=== PATIENT | female | born 1940 | race Caucasian/White ===

== ENCOUNTER 2016-08-03 10:12 | Day surgery (SDC) | payer MEDICARE ==
[~2016-08-03] VITALS: Ht 149.9 cm; Wt 71.8 kg
[2016-08-03] VITALS (11 sets, daily range): BP systolic 136–165; BP diastolic 60–85; PULSE 80–95; RESP 13–17; O2SAT 96–99
[~2016-08-03 10:12] MED LIST: CHOL10008 PO; CHON250C PO; CeFAZolin Inj 2 GM in IV Premix 1 EACH IV ONE; FLAX100038 PO; LATA2.5D5 OP; LEVO75TA4 PO; LORA10CA PO; Lactated Ringer's 1,000 ML IV SCH; MULT-1018 PO; PANT40TA3 PO; RANI150T11 PO; SIMV40TA5 PO; SUCR1TAB PO
[2016-08-03] MEDS ORDERED: Neostigmine 1 mg/mL 10 mL Inj ONE ×2 (10:13)
[2016-08-03] MEDS ORDERED: fentaNYL-PF 50 mCg/mL 2 mL Inj ONE (10:13)
[2016-08-03] MEDS ORDERED: Succinylcholine Chloride 20 mg/mL 5 mL Inj ONE ×2 (10:13)
[2016-08-03] MEDS ORDERED: MetoCLOpramide 5 mg/mL 2 mL Inj ONE ×2 (10:13)
[2016-08-03] MEDS ORDERED: Remifentanil 1 mg/3 mL Inj ONE ×2 (10:13)
[2016-08-03] MEDS ORDERED: HYDROmorphone 2 mg/mL Inj ONE (10:13)
[2016-08-03] MEDS ORDERED: Rocuronium 10 mg/mL 5 mL Inj ONE ×2 (10:13)
[2016-08-03] MEDS ORDERED: Dexamethasone 4 mg/mL Inj ONE ×2 (10:13)
[2016-08-03] MEDS ORDERED: Phenylephrine/NS 100 mCg/mL 10 mL Syringe IVPUSH ONE ×3 (10:13)
[2016-08-03] MEDS ORDERED: Ondansetron 2 mg/mL 2 mL Inj ONE ×2 (10:13)
[2016-08-03] MEDS ORDERED: Glycopyrrolate 0.2 MG/ML 1mL Inj ONE (10:13)
[2016-08-03] MEDS ORDERED: Glycopyrrolate 0.2 mg/mL 5 mL Inj ONE (10:13)
[2016-08-03] MEDS ORDERED: Phenylephrine 10,000 mCg/mL Inj ONE (10:13)
[2016-08-03] MEDS ORDERED: Propofol 10,000 mCg/mL 20 mL Inj ONE ×2 (10:13)
[2016-08-03] MEDS ORDERED: EPHEDrine/NS 5 mg/mL 5 mL Syringe ONE ×2 (10:13)
[2016-08-03] MEDS ORDERED: Lactated Ringer's 1,000 ML IV ONE ×3 (11:29→17:57)
--- NOTE | 2016-08-03 12:08 | PCM.HPANE ---
Patient Data Date of Service: Aug 03, 2016 Surgeon Admitting Provider: Attending Provider:Nery Villafuerte MD Primary Care Physician:Javan Pal DO Other Provider: Reason for Visit Paraesophageal Hernia Ht/WT & BMI Height (Feet): 4 Height (Inches): 10.00 Weight (Kilograms): 68.170 Body Mass Index 31.00 Allergies Coded Allergies: fentanyl (Verified Allergy, Intermediate, nausea and vomiting, 03/03/16) morphine (Verified Allergy, Intermediate, nausea and vomiting, 03/03/16) adhesive tape (Verified Allergy, Unknown, blisters, 03/03/16) Past Anesthesia History Anesthesia History: Denies:: Anesthesia Reactions, Fam Anesthesia Reaction, Malignant Hyperthermia Diabetes History Hx Diabetes?: No MRSA MRSA: No Medications Hypertension Medication: No Home Meds Incl Beta Monserrat: No Reported Medications Ranitidine (Zantac)150 Mg [id number] Mg PO DAILY 08/01/16 Latanoprost (Xalatan)2.5 Ml Drops2.5 Ml OP DAILY 08/01/16 Cholecalciferol (Vitamin D3) (Vitamin D3)1,000 Unit Tab.chew1,000 Unit PO DAILY 08/01/16 Sucralfate 1 Gm Tablet1 Gm PO TID 30 Days Ref 0 08/01/16 Simvastatin 40 Mg Ohvppn91 Mg PO HS 30 Days Ref 0 08/01/[address] 40 Mg Tablet.dr40 Mg PO DAILY Ref 0 08/01/16 Multivitamin (Multi Vitamin Daily)1 Each Tablet1 Each PO DAILY 30 Days Ref 0 08/01/16 Loratadine (Claritin)10 Mg Vkqlnuq80 Mg PO DAILY Ref 0 08/01/16 Levothyroxine 75 Mcg Plzyqn89 Mcg PO DAILY Ref 0 08/01/16 Flaxseed Oil ([place]-3 Flaxseed Oil)1,000 Mg Capsule1,000 Mg PO DAILY 08/01/16 Chondroitin Sulfate A (Chondroitin Sulfate)250 Mg Cgtasry185 Mg PO DAILY 08/01/16 Discontinued Reported Medications Loratadine (Claritin)10 Mg Owjrffl27 Mg PO DAILY Ref 0 03/03/16 Flaxseed Oil ([place]-3 Flaxseed Oil)1,000 Mg Capsule1,000 Mg PO DAILY 03/03/16 Cholecalciferol (Vitamin D3) (Vitamin D)1,000 Unit Capsule1,000 Unit PO DAILY # 1 BOTTLE Ref 0 03/03/16 Multivitamin (Once Daily)1 Each Tablet1 Each PO DAILY 03/03/16 Gluc/[place]-MSM#2/C/D3/Brad/Born (Ljgipmsavt-Ttdqotqljji-WFX Tab)1 Each Tablet1 Each PO BID 03/03/16 Beclomethasone Dipropionate (Qvar)8.7 Gm Aer.w.adap2 Puff INH BID PRN For Wheezing #9 03/03/16 Latanoprost 2.5 Ml Drops1 Drop AFFECT_EYE HS #3 03/03/16 Albuterol HFA (Proair HFA)8.5 Gm Hfa.aer.ad2 Puffs INHALATION Q4H PRN For Wheezing #1 INHALER 03/03/16 Simvastatin 20 Mg Vnplsc51 Mg PO DAILY #90 03/03/16 Levothyroxine 75 Mcg Svcknv48 Mcg PO DAILY #30 03/03/16 Discontinued Scripts Omeprazole 40 Mg Capsule.dr40 Mg PO BID #60 CAPSULE Ref 3 Prov:Jose E Sams DO 03/04/16 Omeprazole 40 Mg Capsule.dr40 Mg PO BID #30 CAPSULE Ref 4 Prov:Jose E Sams DO 03/04/16 Sucralfate (Carafate)1 Gm Tablet1,000 Mg PO QIDWA #120 TABLET Ref 4 Prov:Jose E Sams DO 03/04/[address] 40 Mg Tablet.dr40 Mg PO BIDAC #60 TABLET Ref 2 Prov:Jose E Sams DO 03/04/16 Ranitidine 150 Mg Aqmtlwx102 Mg PO Q2DAY PRN For Dyspepsia or Heartburn #30 CAPSULE Ref 4 Prov:Jose E Sams DO 03/04/16 History History of ENT Problems?: Yes HEENT History: Positive for:: Cataracts (bilaterally) Glaucoma Sinus Problem (with seasonal allergies) 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) Denies:: Hearing Problem Hx of Heart Problems?: No Cardiovascular History: Denies:: AICD Abdominal Aortic Aneurism Atrial Fibrillation Chest Pain Congestive Heart Failure Coronary Artery Disease Edema Heart Murmur Hypertension Irregular Heartbeat Pacemaker Peripheral Vascular Other History/Comments METS > 4 Hx of Respiratory Problem?: Yes Respiratory History: Positive for:: Asthma (with upper resp infections) Dyspnea Denies:: COPD Oxygen Administration Pneumonia Tuberculosis Use of C-PAP Machine Hx Neurologic Problems?: No Neurological History: Denies:: CVA Dementia Dizziness Headaches Multiple Sclerosis Parkinson's Disease Seizures TIA Hx of GI Problems?: Yes Gastrointestinal History: Positive for:: Gastrointestinal Bleeding (stomach lesions caused gib) Hiatal Hernia (paraesophageal hernia current admission problem) Rectal Bleeding Denies:: Diverticulitis (diverticulosis) Gall Bladder Disease Other History/Comment hct 39% in 04/26/16 Hx of Problems?: No Genitourinary History: Denies:: Kidney Stones Urinary Tract Infection Female Hx: Positive for:: Problems with Breasts? (hx of breast ca- lumpectomy ax node- left side ) Denies:: Currently Skin History: Denies:: History Skin Disorders? Pressure Ulcers Hx Musculoskeletal Problems?: No Musculoskeletal History: Denies:: Back Injury Degenerative Joint Fibromyalgia Musculoskeletal Trauma Osteoarthritis Rheumatoid Arthritis Hx of Psycho/Social Problems?: No Psycho Social History: Denies:: Anxiety Hx Depression Hx Surgeries?: Yes (L axillary node dissection, L breast lumpectomy, c sect, branchial cleft cy) Hx Any Other Health Problems?: Yes Other History: Positive for:: Cancer (L breast ca post chemo & lumpectomy) Thyroid Disease (on levothyroxine) History Blood Transfusions: Positive for:: Accept Blood Products? Blood Transfusions Denies:: Blood Transfuse Reaction Hx Diabetes: No Hx Alcohol Use: Yes (occasional)Hx Substance Use: No Smoking Status: Former Smoker Stop/Bang S-Snoring: Do You Snore Loudly: No T-Tired: feel tired, fatigued: No O-Obsered: Observed not breath: No P-Blood Pressure: treated: No B- Body Mass Index > 35 kg/m2: No A- Age over 50: Yes N- Neck Large Circumference: No G- Gender Male: Yes MARCO ANTONIO Total Score: 2 Risk Assessment Category Category 1A: Patient has history of documented sleep apnea, and HAS NOT received any narcotic, sedative or anesthesia administration during this stay. Category 1B: Patient has history of documented sleep apnea, and HAS received any narcotic , sedative or anesthesia administration during this stay Category 2: Patient has SUSPECTED Obstructive Sleep Apnea, and HAS received any narcotic , sedative or anesthesia administration during this stay. Category 3: Patient has SUSPECTED Obstructive Sleep Apnea and HAS NOT received narcotic, sedative or anesthesia administration during this stay. Category 4: Outpatient in Procedural Areas with known sleep apnea or who screen positive for High Risk via the STOP/BANG questionnaire. Exam Exam Vital Signs Vital Signs Date Time Temp Pulse Resp B/P Pulse Ox O2 Delivery O2 Flow Rate FiO2 08/03/16 11:30 36 87 17 154/76 96 Room Air General Appearance: Alert, Oriented X3, Cooperative HEENT/AIRWAY: MP 3, Neck Movement (poor extension) Lungs: Clear to Auscultation Heart: Exam Unremarkable, Regular Rate/Rhythm Meds/Labs/Diagnostics Admission Meds Current Medications Lactated Ringer's (Lr) 1,000 ml @ ud STK-MED ONCE IV Last administered on 08/03t 11:29; Start 08/03/16 at 11:29; Stop 08/03/16 at 11:30; Status DC Plan Impression Patient chart reviewed, patient interviewed and anesthestic plan with risks, benefits, and alternatives discussed, and informed consent obtained. NPO Status: 08/02@1930 ASA Physical Status: ASA2 Mod Systemic Disease Anesthetic Plan: GA Bene/Risks/Altern/Consents: Yes HP Complete Prior to Induction: Yes Bruce Mayes MD Aug 03, 2016 12:08
[2016-08-03] MEDS ORDERED: Bupivacaine 0.5%/EPI 50 mL Inj INFILTRATE ONE (13:43)
[2016-08-03] MEDS ORDERED: Lactated Ringer's 500 ML IV PRN (16:22)
[2016-08-03] MEDS ORDERED: Lactated Ringer's 1,000 ML IV SCH (16:22)
[2016-08-03] MEDS ORDERED: MetoCLOpramide 5 mg/mL 2 mL Inj IVPUSH PRN ×2 (16:25→17:00)
[2016-08-03] MEDS ORDERED: Labetalol 5 mg/mL 4 mL Inj IV PRN (16:25)
[2016-08-03] MEDS ORDERED: Ondansetron 2 mg/mL 2 mL Inj IVPUSH PRN ×2 (16:25→17:00)
[2016-08-03] MEDS ORDERED: HYDROmorphone 1 mg/mL Inj IVPUSH PRN (16:25)
[2016-08-03] MEDS ORDERED: Phenylephrine 10,000 mCg/mL Inj IVPUSH PRN (16:25)
[2016-08-03] MEDS ORDERED: EPHEDrine Sulfate 50 mg/mL Inj IVPUSH PRN (16:25)
[2016-08-03] MEDS ORDERED: hydrALAZINE 20 mg/mL Inj IVPUSH PRN (16:25)
--- NOTE | 2016-08-03 16:55 | PCM.ANEP1 ---
Post Anesthesia Phase 1 PACU Phase 1 Assessment Date of Service: Aug 03, 2016 Vital Signs Vital Signs Date Time Temp Pulse Resp B/P Pulse Ox O2 Delivery O2 Flow Rate FiO2 08/03/16 11:30 36 87 17 154/76 96 Room Air Anesthetic Administered: GA Level of Alertness: Awake, talking AHMADI's with Equal Strength: Yes Pain Scale Score: 3 Nausea or Vomiting: No Oxygen Delivery: Simple Mask Bruce Mayes MD Aug 03, 2016 16:55
--- NOTE | 2016-08-03 16:55 | PCM.ANEP2 ---
Post Anesthesia Evaluation ASA/CMS Post Anesthesia Date of Service: Aug 03, 2016 VS in Patient's Normal Range?: Yes Resp Stable; Airway Patent?: Yes CV Function & Hydration Stable: Yes Mental Status Recovered?: Yes Pain control Satisfactory?: Yes N/V Control Satisfactory?: Yes Bruce Mayes MD Aug 03, 2016 16:55
[2016-08-03] MEDS ORDERED: oxyCODONE 1 mg/mL 5 mL Liquid PO PRN (17:05)
--- NOTE | 2016-08-03 17:13 | PCM.SURGOP ---
Surgical Operative Report Date of Service: Aug 03, 2016 Pre Operative Diagnosis Paraesophageal hernia Post Operative Diagnosis Paraesophageal hernia Procedure: Laparoscopic paraesophageal hernia repair with Toupet fundoplication Surgeon and Supervisor [employer]: Surgeon: Nery Villafuerte M.D. Assistants: Antony Sanchez M.D.; Douglas Enamorado PA-C; Gwendolyn Galvez, MS3 Surgical assistants were necessary for dissection, retraction, and surgical decision making. Indication for Procedure This is a 76-year-old woman who was admitted the hospital with gastric bleeding and on workup was found to have Fredi's erosions associated with her paraesophageal hernia. She also had symptoms of heartburn and dysphagia. Preoperative workup revealed approximately one half of the stomach in the chest on upper GI fluoroscopy, normal esophageal peristalsis on manometry, and Fredi 's erosions requiring thermocoagulation for control of bleeding on upper endoscopy. Findings: Large paraesophageal hernia with approximately one half of the stomach in the chest. A relaxing incision was performed. The crura were reapproximated primarily. A 270 Toupet fundoplication was performed. Procedure Details The patient was brought to the operating room and placed in supine position. General endotracheal anesthesia was smoothly induced. A warming blanket and SCDs were placed. The patient was repositioned into low lithotomy with the left arm tucked. Antibiotics were infused. The operative field was prepped and draped in a sterile fashion. A pause was performed to confirm the correct patient, procedure, and site. The abdomen was accessed using a Veress needle in the left upper quadrant after controlling the fascia and was insufflated. An 11 mm Optiview port was inserted and intraperitoneal insufflation began. An 11 mm port was then placed in the mid abdomen just to the left of midline. The 5 mm port was placed in the mid abdomen laterally on the left. A 5mm liver retractor was used with placement in a right lateral position. A 5mm trocar was placed in the right upper quadrant. An additional 5 mm port was placed in the left mid abdomen for the virtual assistant for advertisers's left hand. The stomach was identified and carefully reduced out of the mediastinum. The short gastrics were taken down using LigaSure device. Dissection proceeded at the hiatus starting on the left. The plane between the hernia sac and pleura was entered and the hernia sac was carefully removed from the mediastinum. No defects were made in the pleura during this portion of the dissection. The gastrohepatic ligament was then divided up to the right kasi and the right sided dissection was completed with care taken to preserve the entire kasi and both vagi. The left gastric artery was carefully preserved, as it Was found to extend into the mediastinum initially before the stomach was reduced. Once the esophagus was fully dissected circumferentially, a Magali drain was then placed around the esophagus at the gastroesophageal junction for retraction to facilitate a more proximal esophageal dissection. This proceeded proximally until there was 5 cm of intra- abdominal esophagus without tension on the [place]. The crural closure was then performed. After the first posterior crural 2-0 silk stitch was placed, there is some tension seen on the crura. Therefore, a partial-thickness relaxing incision was performed on the right diaphragm 2 cm lateral to the right kasi. Approximately 6 additional stitches were placed in the crura were nearly completely reapproximated. The thin layer of fascia overlying the diaphragm on the left, 2 cm lateral to the left kasi was divided, and this allowed complete posterior reapproximation of both crura With one additional stitch. The reduced hernia sac was removed using the LigaSure device, with care taken to avoid injury to the stomach, esophagus, or vagus during this portion of the procedure. Attention was turned to the to Toupet fundoplication. A Toupet was chosen due to data demonstrating that it is equivalent for postoperative reflux but improves postoperative dysphagia and gas bloat, and the risk of bougie placement is avoided. A marking stitch was placed on the posterior fundus, 3 cm distal to the gastroesophageal junction and 2 cm posterior to the greater curvature. This was brought around posteriorly to align the geometry of the fundoplication. The first stitch was placed in the fundus just proximal to the marking stitch, to the esophagus at and 11 o'clock position, and to the right kasi at the 11 o'clock position. The second stitch was placed from the posterior aspect of the right fundoplication to the bilateral crura posteriorly. The [place] drain was removed. Two additional stitches were then placed from the right side of the fundoplication to an 11 o'clock position on the esophagus. Care was taken to avoid inclusion of the anterior vagus in the stitches. The marking stitch was removed. Attention was then turned to the left side of the wrap. An appropriate position on the fundus was chosen to create symmetrical geometry of the fundoplication. The first stitch on the left was placed from the wrap to the esophagus to the kasi, again with care taken to avoid inclusion of the anterior vagus in the stitch. Three additional sutures were then placed from the wrap to the esophagus, each 1 cm distal to the previous one. Once the procedure was complete, the 11 mm port site in the left mid abdomen was closed with an interrupted 2-0 PDS using a fascial closure device. The remaining ports were removed under direct vision and the abdomen was desufflated. 0.5% Marcaine with epinephrine was infused at all port sites. Skin was closed with 4-0 Monocryl. Sterile dressings were placed. All sponge, instrument, and needle counts were correct at the end of the procedure. The patient was awakened from general anesthesia and taken to the postoperative care unit in good condition. Complications There were no periprocedural complications identified. Surgical Specimen Removed: Yes Specimen sent to Pathology: No Surgical Specimen description: Paraesophageal hernia sac Anesthetic Plan: GA Grafts, Implants: None Output, Estimated Blood Loss: 10 (ml) Blood Administration during morley: No Nery Villafuerte MD Aug 03, 2016 17:13
[2016-08-03 17:14] LABS: BASOPHILS % (AUTO) 0.1 % (0-3); EOSINOPHILS % (AUTO) 0 % (0-5); MONOCYTES % (AUTO) 3.6 % (4-12); Mean Corpuscular Hemoglobin 25.1 pg (27.0-35.0); Mean Corpuscular Volume 79.5 fL (81-100); NEUTROPHILS % (AUTO) 89.7 % (40-74); Platelet Count 265 bil/L (150-400)
--- NOTE | 2016-08-03 17:45 | NUR ---
Admit Pt admitted to floor. Denies pain. C/o some nausea- was given Zofran and it was effective. On 3L O2, sats in high nineties. Denies CP and SOB. Pt has 6 LAP sites that are CDI. Awaiting tele to place on pt. Bed locked in low position and call light within reach. Will continue to monitor.
[2016-08-03] MEDS: Dextrose 5% Lactated Ringer's 1,000 ML IV SCH (18:23)
[2016-08-03] MEDS: Acetaminophen 32.5 mg/mL 20 mL Liquid PO SCH ×2 (19:09→22:04)
[2016-08-03] MEDS: Heparin 5,000 Unit/mL Inj SUBQ SCH (19:39)
[2016-08-04] VITALS (8 sets, daily range): BP systolic 95–161; BP diastolic 54–79; PULSE 90–115; RESP 16–18; O2SAT 88–99
[2016-08-04] MEDS: Heparin 5,000 Unit/mL Inj SUBQ SCH ×3 (00:16→16:58)
--- NOTE | 2016-08-04 03:49 | NUR ---
Pain c/o pain x2 this shift. Prn Oxycodone given x1 and effective but patient felt that it made her drowsy and requested APAP the second time which was effective. Currently resting in bed without any complaints.
[2016-08-04] MEDS: Acetaminophen 32.5 mg/mL 20 mL Liquid PO SCH ×4 (04:19→23:43)
[2016-08-04] MEDS: Dextrose 5% Lactated Ringer's 1,000 ML IV SCH ×2 (06:17→18:17)
[2016-08-04 07:50] LABS: BASOPHILS % (AUTO) 0 % (0-3); EOSINOPHILS % (AUTO) 0.1 % (0-5); Mean Corpuscular Hemoglobin 24.7 pg (27.0-35.0); Mean Corpuscular Volume 79.7 fL (81-100); NEUTROPHILS % (AUTO) 78.9 % (40-74); Platelet Count 223 bil/L (150-400)
--- NOTE | 2016-08-04 08:03 | PCM.DISURG ---
Surgical Discharge Instruction Date of Service Aug 04, 2016 Dates of Hospitalization Date of Hospital Admission Providers Admitting Physician: Primary Care Physician: Javan Pal DO Attending Physician: Nery Villafuerte MD Discharge Diagnosis Discharge Diagnosis Paraesophageal hernia Post Operative diagnosis Paraesophageal hernia Diet Discharge Diet: Other (Liquid/puree) Activity Discharge Activity-General: Be up and about, No lifting >15 pounds for 2 weeks Dressing and Incisional Care Dressing Care: Allow Steri Stripes to fall off, Remove outer dressing after 24 hrs Hygiene: May shower Additional Instructions Discharge Instructions All medications should be liquid or crushed. Follow Up Plan Follow Up Plan Follow up with Dr. Villafuerte in 2 weeks. Call your provider for: Fever, Chills, Shortness of breath, Increasing abdominal pain, Nausea, Vomiting, Discharge @ incision, pus discharge Nery Villafuerte MD Aug 04, 2016 08:03
[2016-08-04] MEDS ORDERED: OXYC5SOL11 PO (08:05)
[2016-08-04] MEDS ORDERED: ONDA4TAB12 PO (08:05)
[2016-08-04] MEDS ORDERED: ACET650S24 PO (08:05)
--- NOTE | 2016-08-04 08:06 | PCM.PNSURG ---
Subjective Visit Information: Reason for Visit Paraesophageal Hernia Surgery/Surgery Date Post-Op Day # Date of Admission: Hospital Day # Subjective: Stable overnight. Tolerating CLD. No N/V. Still on O2. Did not like oxycodone as it made her drowsy; pain well controlled on tylenol. Objective Vital Sign- Last 8 Hours Date Time Temp Pulse Resp B/P Pulse Ox O2 Delivery O2 Flow Rate FiO2 08/04/16 07:53 36.8 90 16 103/54 94 Nasal Cannula 2.50 08/04/16 05:22 93 08/04/16 05:10 36.8 92 16 95/56 96 Nasal Cannula 2.50 08/04/16 00:34 36.7 97 16 104/63 99 Nasal Cannula 2.50 Intake and Output- Last 8 Hour 08/04/16 Cumulative From/Thru 07:00 08/01/16 16:35 - 08/04/16 06:31 Intake Total 1153 ml 3303 ml Output Total 550 ml 1720 ml Balance 603 ml 1583 ml Intake Oral 200 ml 200 ml IV Total 953 ml 3103 ml Output Urine Total 550 ml 1700 ml Estimated Blood Loss 20 ml # Bowel Movements 0 0 General: Alert, Oriented X3, Cooperative, No Acute Distress Abdomen: Soft, Non-distended Result Diagram: 08/04/16 0730 08/03/16 1709 Assessment & Plan Impression POD1 lap paraesophageal hernia repair. Problems: Plan d/c shin UGI Nutrition c/s Wean O2 FLD Possibly home in afternoon Nery Villafuerte MD Aug 04, 2016 08:06
--- NOTE | 2016-08-04 08:37 | NUR ---
Off unit To Xray via wheelchair at this time.
--- NOTE | 2016-08-04 10:10 | NUR ---
RD Diet Ed Completed Pureed/liquid diet education completed. Please see RD: Dietary Teaching Record under Care Activity for further information regarding education
--- NOTE | 2016-08-04 10:39 | DRSVH ---
PROCEDURE: X-RAY GASTROGRAPHIN STUDY OF ESOPHAGUS/PHARYNX ([id number]) INDICATIONS: PEH REPAIR COMPARISON: None. FINDINGS: Patient was able to swallow Gastrografin without difficulty. Intact. Fundoplication present and there is no extravasation of contrast media seen at the fundoplication lev el. Small amount of barium was also given demonstrating no free spillage of contrast media. The atte nding physician was personally present in the room during the examination. IMPRESSION: Expected appearance status post recent Toupet fundoplication. Dictated by: Christian HANDY Interpreted: Shagufta Nunez MD on 08/04/2016 at 10:36 Transcribed by: JEROD on 08/04/2016 at 10:39 Approved by: Shagufta Nunez M.D. on 08/04/2016 at 21:22
[2016-08-05] MEDS: Heparin 5,000 Unit/mL Inj SUBQ SCH ×2 (00:50→07:48)
[2016-08-05 03:55] VITALS: BP 129/79; PULSE 94; RESP 16; O2SAT 96
--- NOTE | 2016-08-05 04:21 | NUR ---
Abdomen "gassy" Pt reports that she feels "gassy" and is unable to burp. BT + x4, Ambulated halls earlier in shift and has not been helpful. Phoned in call, rec'd order for simethicone. Pt also rec'd routine tylenol per orders. Pt refused the simethicone, concerned of particles. After receiving tylenol and repositioning she stated she felt better Addendum: 08/05/16 at 2615 by VIRGIL AMADOR RN scallop binder stated he did not know Pt so to make her NPO until Dr Christo mancera's in the AM, Pt was agreeable
[2016-08-05 05:52] VITALS: PULSE 95
[2016-08-05] MEDS: Acetaminophen 32.5 mg/mL 20 mL Liquid PO SCH ×2 (06:10→11:49)
[2016-08-05] MEDS: Dextrose 5% Lactated Ringer's 1,000 ML IV SCH (07:11)
[2016-08-05 08:00] VITALS: PULSE 90; PULSE 92
--- NOTE | 2016-08-05 08:38 | PCM.PNSURG ---
Subjective Visit Information: Reason for Visit Paraesophageal Hernia Surgery/Surgery Date Post-Op Day # Date of Admission: Hospital Day # Subjective: Pt stayed overnight as she still was on low dose O2, and was not passing gas. She is now passing gas, feeling less bloated. She had difficulty with belch per nursing reports but reports she has been able to belch. NO N/V. Doesn't like full liquids because she feels a sense of mucous in her mouth. ok with clears. Hct stable. Mild tachycardia last night, resolved this am. Objective Vital Sign- Last 8 Hours Date Time Temp Pulse Resp B/P Pulse Ox O2 Delivery O2 Flow Rate FiO2 08/05/16 05:52 95 08/05/16 03:55 37.0 94 16 129/79 96 Nasal Cannula 2.50 Intake and Output- Last 8 Hour 08/05/16 Cumulative From/Thru 07:00 08/01/16 16:35 - 08/05/16 06:21 Intake Total 200 ml 4539 ml Output Total 1550 ml 4570 ml Balance -1350 ml -31 ml Intake Oral 200 ml 600 ml IV Total 3939 ml Output Urine Total 1550 ml 4550 ml Estimated Blood Loss 20 ml # Bowel Movements 0 0 General: Alert, Oriented X3, Cooperative, No Acute Distress Abdomen: Soft, Appropriately tender Result Diagram: 08/05/16 0700 08/04/16 0730 Assessment & Plan Impression POD2 PEH repair, doing well. Problems: Plan Clears Walk Observe vitals Possible d/c at noon if stability continues and she tolerates liquids. Nery Villafuerte MD Aug 05, 2016 08:37
[2016-08-05 10:34] VITALS: BP 153/54; PULSE 98; RESP 16; O2SAT 92
--- NOTE | 2016-08-05 14:59 | NUR ---
Discharge Pt d/c'd home at approx 1415. IV x2 removed intact. Reviewed d/c instructions w/ patient. Answered all questions. RX faxed to pharmacy for patient convenience, hard copies sent w/ patient as well. Pt left via w/c to her 's POV and had all belongings.
--- NOTE | 2016-08-06 13:38 | PCM.DC.SUR ---
Discharge Summary Date of Service: Date of Hospital Admission: 08/03/2016 Date of Operation(s): 08/03/2016 Date of Discharge: Aug 05, 2016 at 14:07 Diagnosis at Time of Discharge Primary diagnosis: Paraesophageal hernia Other diagnoses: Breast cancer Macular degeneration Hypercholesterolemia Hypothyroidism Colonic polyps GERD History of bronchospasm History of upper GI bleed Former cigarette smoker Problems: Operation Laparoscopic paraesophageal hernia repair with Toupet fundoplication Brief History and Physical: This is a 76-year-old woman who was admitted to the hospital with gastric bleeding and on workup was found to have Fredi's erosions associated with an paraesophageal hernia. She also had symptoms of heartburn and dysphagia. Preoperative workup revealed approximately one half of the stomach in the chest on upper GI fluoroscopy, normal esophageal peristalsis on manometry, and Fredi 's erosions requiring thermocoagulation for control of bleeding on upper endoscopy. Consultants: None Hospital Course: The patient was admitted and underwent the above-mentioned operation without complication. The following day Gastrografin swallow did not demonstrate extravasation. Discharge was delayed by one day as the patient's O2 requirements required supplemental oxygen through her first postsurgical might. By the second postsurgical day the patient was able to tolerate a liquid diet , was satting in an acceptable range without O2, and felt stable for discharge. Pathology: None Disposition: The patient was discharged home on her second postsurgical day. Follow-up Plan: She will follow-up in the office with Dr. Villafuerte in 2 weeks. Acetaminophen (Acetaminophen Liquid) 650 Mg/20 Ml Liquid 925 MG PO Q6H Cholecalciferol (Vitamin D3) (Vitamin D3) 1,000 Unit Tab.chew 1,000 UNIT PO DAILY (Reported) Chondroitin Sulfate A (Chondroitin Sulfate) 250 Mg Capsule 250 MG PO DAILY ( Reported) Flaxseed Oil ([place]-3 Flaxseed Oil) 1,000 Mg Capsule 1,000 MG PO DAILY (Reported ) Latanoprost (Xalatan) 2.5 Ml Drops 2.5 ML OP DAILY (Reported) Levothyroxine (Levothyroxine) 75 Mcg Tablet 75 MCG PO DAILY (Reported) Loratadine (Claritin) 10 Mg Capsule 10 MG PO DAILY (Reported) Multivitamin (Multi Vitamin Daily) 1 Each Tablet 1 EACH PO DAILY (Reported) Ondansetron ODT (Ondansetron ODT) 4 Mg Tab.rapdis 4 MG PO QID PRN PRN For Nausea Simvastatin (Simvastatin) 40 Mg Tablet 40 MG PO HS (Reported) oxyCODONE (oxyCODONE) 5 Mg/5 Ml Solution 5-10 MG PO Q4H PRN PRN For Severe Pain copies to: Javan Pal Fred H PA-C Aug 06, 2016 13:38
== END 2016-08-05 14:07 | disposition home or self-care (01) ==
LOC: SAS 10:12 → OSC 17:58 → SAS 08-05 14:07
PROVIDERS: ATTEND Surgery
DX: K44.9 Diaphragmatic hernia without obstruction or gangrene (principal); E78.00 Pure hypercholesterolemia, unspecified; E03.9 Hypothyroidism, unspecified; K21.9 Gastro-esophageal reflux disease without esophagitis; Z85.3 Personal history of malignant neoplasm of breast; Z87.891 Personal history of nicotine dependence; Z79.899 Other long term (current) drug therapy
CPT/HCPCS: 36415; 43280; 74220; 80048; 85014; 85025; J0330; J0690; J1100; J1170; J1644; J2370; J2405; J2710; J2765; J3010; J7050; J7120; Q9963